=== PATIENT | female | born 1940 | race Caucasian/White ===

== ENCOUNTER → 2020-10-07 13:52 | Outpatient (CLI) | payer OTHER, MEDICARE, SELFPAY ==
--- NOTE | 2020-10-07 | DI.MRI.S_ITS ---
PROCEDURE: MR WRIST LT WO CON INDICATIONS: Localized swelling, mass and lump, left upper limb TECHNIQUE: Noncontrast coronal proton density fast spin echo and T2 fast spin echo with fat saturation; coronal 3-D gradient echo, axial T1 spin echo and T2 fast spin echo with fat saturation, sagittal T1 spin echo through the wrist. COMPARISON: [facility] [place], CR, XR WRIST 3+ VIEWS LEFT, 09/28/2020, 16:33. FINDINGS: Image quality: There is motion artifact and inhomogeneous fat saturation limiting evaluation. Bones and cartilage: The carpal bones are normally aligned. No bone marrow contusions or fractures. There are cystic changes within the volar and dorsal aspects of the lunate as well as the volar proximal aspect of the triquetrum. Findings likely represent intraosseous ganglion cysts versus degenerative subchondral cysts. No evidence of avascular necrosis. There is mild cartilage thinning along the radiocarpal joint. Carpal ligaments: The scapholunate and lunotriquetral ligaments appear intact. In the absence of intra-articular contrast, the extrinsic carpal ligaments are not well identified. On sagittal images, the pisohamate ligament appears intact. Triangular fibrocartilage complex: The triangular fibrocartilage demonstrates degenerative tearing with small perforations adjacent to its radial attachment. There is also degenerative change along its ulnar attachments. Minimal fluid is demonstrated within the distal radioulnar joint. The adjacent meniscal homolog demonstrates degenerative signal. The extensor carpi ulnaris tendon is normal in location and morphology. Tendons and soft tissues: There is an oval circumscribed subcutaneous soft tissue nodule demonstrating T1 and T2 hypointensity within the volar radial aspect of the wrist superficial to the median nerve and flexor carpi radialis tendon. This nodule measures approximately 0.6 x 0.4 by approximately 1.2 cm. There is adjacent subcutaneous edema. The carpal tunnel structures appear normal, including the median nerve. The ulnar nerve appears normal within Guyon's canal. All six extensor tendon compartments demonstrate normal morphology, without pathologic tendon sheath fluid. IMPRESSION: 1. Small subcutaneous solid-appearing soft tissue mass demonstrated within the volar radial aspect of the wrist as described. The findings are nonspecific but suspicious for a small soft tissue neoplasm such as a sarcoma, nerve sheath tumor, or metastasis. The differential also includes infectious or inflammatory processes such as a phlegmon or thrombophlebitis. Further evaluation is recommended with contrast enhanced images if clinically indicated. 2. Degenerative tearing of the triangular fibrocartilage. Dictated by: Finn Chou M.D. on 10/07/2020 at 16:59 Approved by: Finn Chou M.D. on 10/07/2020 at 17:13
== END ==
PROVIDERS: PCP Nurse Practitioner Family; Referring Provider Orthopaedic Surgery Foot and Ankle Surgery; Visit Provider Orthopaedic Surgery Foot and Ankle Surgery
DX: R22.32 Localized swelling, mass and lump, left upper limb (principal); M24.132 Other articular cartilage disorders, left wrist
CPT/HCPCS: 73221

== ENCOUNTER → 2020-10-28 12:43 | Outpatient (CLI) | payer OTHER, SELFPAY ==
--- NOTE | 2020-10-28 | DI.MRI.S_ITS ---
PROCEDURE: MR WRIST LT W CON INDICATIONS: Localized swelling, mass and lump, left upper limb TECHNIQUE: After the administration of 3-4 mL of dilute intra-articular Gadolinium contrast into the radiocarpal compartment, coronal T1 spin echo with fat saturation and T2 fast spin echo with fat saturation, axial T1 spin echo and T2 fast spin echo with fat saturation, sagittal T1 spin echo with and without fat saturation through the wrist. COMPARISON: [facility], , MR WRIST LT WO CON, 10/07/2020, 14:24. FINDINGS: Image quality: Degraded by motion artifact. Subcutaneous mass within the volar/radial aspect of the wrist seen on the prior study from 10/07/20 demonstrates ill-defined enhancement, not well visualized due to small size. This finding is still technically indeterminate. Infectious or inflammatory etiologies are statistically more probable, however cannot exclude small solid neoplasm. No suspicious marrow enhancement. No discrete abscess seen. IMPRESSION: Nonspecific mild heterogeneous enhancement associated with the small mass seen on the prior study as detailed above. Recommend correlation with exam findings and clinical management. Recommend clinical follow-up to document resolution after treatment. Dictated by: Mannie Cannon M.D. on 10/28/2020 at 15:59 Approved by: Mannie Cannon M.D. on 10/28/2020 at 16:04
== END ==
PROVIDERS: PCP Nurse Practitioner Family; Referring Provider Orthopaedic Surgery Foot and Ankle Surgery; Visit Provider Orthopaedic Surgery Foot and Ankle Surgery
DX: R22.32 Localized swelling, mass and lump, left upper limb (principal)
CPT/HCPCS: 73222

== ENCOUNTER → 2021-02-28 12:24 | Outpatient (CLI) | payer OTHER, SELFPAY ==
--- NOTE | 2021-02-28 12:26 | DI.US.S_ITS ---
PROCEDURE: US THYROID INDICATIONS: nontoxic single thyroid nodule TECHNIQUE: Real-time scanning was performed of the thyroid gland, with image documentation. COMPARISON: None. FINDINGS: Right: Thyroid lobe measures 4.8 x 2.8 x 2.6 cm, and is heterogeneous and echotexture. Left: Thyroid lobe measures 5.1 x 2.3 x 3.4 cm, and is heterogeneous in echotexture. Isthmus: 2.2 mm thick. Nodule number: 1 Location: Left inferior Size: 1.9 x 0.9 x 1.8 cm. Composition: Solid Echogenicity: Hypoechoic Shape: wider than tall. Margins: Irregular Echogenic foci: None Total points: 4 ACR TI-RADS category: 4 Nodule number: 2 Location: Right superior Size: 1.9 x 1.1 x 1.6 cm. Composition: Solid Echogenicity: Hypoechoic Shape: wider than tall. Margins: Smooth Echogenic foci: None Total points: 4 ACR TI-RADS category: 4 Nodule number: 3 Location: Right mid inferior Size: 4.1 x 2.3 x 2.2 cm. Composition: Solid Echogenicity: Hypoechoic Shape: wider than tall. Margins: Irregular Echogenic foci: None Total points: 4 ACR TI-RADS category: 4 IMPRESSION: Lesions 1, 2 and 3 are considered category 4. Secondary to size, fine-needle aspiration is recommended as below. ACR TI-RADS definitions and recommendations: TI-RADS 1 (benign): 0 points. FNA not needed. TI-RADS 2 (not suspicious): 2 points. FNA not needed. TI-RADS 3 (mildly suspicious): 3 points. * FNA if 2.5 cm or larger, follow up if 1.5 cm or larger (at 1, 3, and 5 years). TI-RADS 4 (moderately suspicious): 4-6 points. * FNA if 1.5 cm or larger, follow up if 1 cm or larger (at 1, 2, 3, and 5 years). TI-RADS 5 (highly suspicious): 7 points or more. * FNA if 1 cm or larger, follow up if 0.5 cm or larger (every year for 5 years). Dictated by: Idalmis Kennedy M.D. on 02/28/2021 at 16:36 Approved by: Idalmis Kennedy M.D. on 02/28/2021 at 16:39
== END ==
PROVIDERS: PCP Nurse Practitioner Family; Referring Provider Otolaryngology; Visit Provider Otolaryngology
DX: E04.2 Nontoxic multinodular goiter (principal)
CPT/HCPCS: 76536

== ENCOUNTER 2023-11-25 12:38 | Day surgery (SDC) | payer MEDICARE, SELFPAY ==
--- NOTE | 2023-11-25 | PATH_ITS ---
[facility] Accession Number: [id number] No. of containers..04 Tissue . 01 Material submitted: . PART A: colon - TRANSVERSE COLON POLYP PART B: colon - ASCENDING COLON POLYPS PART C: colon - CECAL POLYP PART D: colon - RANDOM COLON BIOPSIES . 01 Diagnosis: A. Colon, transverse, polyp biopsy: Tubular adenoma -- B. Colon, ascending, polyps, biopsies: Fragments of tubular adenomas -- C. Colon, cecum, polyp biopsy: Acellular materials. No colonic mucosa seen despite multiple levels assessment. -- D. Colon, random, biopsies: Benign colonic mucosa, negative for microscopic colitis. Negative for active or chronic inflammation. Negative for dysplasia or malignancy. [facility] 11/27/2023 1556 Local . 01 Electronically signed: . Real Lopez MD, Pathologist NPI- [id number] . 01 Gross description: . Part A: TRANSVERSE COLON POLYP: Received in formalin is 1 fragment(s) of rodriguez, soft tissue measuring 0.5 x 0.4 x 0.4 cm submitted entirely in 1 cassette(s) Part B: ASCENDING COLON POLYPS: Received in formalin are 3 fragment(s) of rodriguez, soft tissue measuring 0.2 x 0.2 x 0.2 cm to 0.3 x 0.3 x 0.2 cm submitted entirely in 1 cassette(s) Part C: CECAL POLYP: Received in formalin is 1 fragment(s) of rodriguez, soft tissue measuring 0.1 x 0.1 x 0.1 cm submitted entirely in 1 cassette(s) Part D: RANDOM COLON BIOPSIES: Received in formalin are 2 fragment(s) of rodriguez, soft tissue measuring 0.2 x 0.2 x 0.2 cm to 0.3 x 0.3 x 0.2 cm submitted entirely in 1 cassette(s) /FOREIGN 11/26/2023 0204 Local . 01 Pathologist provided ICD-10: R19.4, D12.6 . 01 CPT . 822372, 017043, [id number], [id number] Specimen Comment: A courtesy copy of this report has been sent to [phone] Performed at: [address] [place] [address], [id number] MD Finn Triplett MD Phone: [phone]
[2023-11-25] MEDS: LACTATED RINGERS 1,000 ML 42 ML IV (12:59)
[2023-11-25 13:14] VITALS: BP 150/57; PULSE 69; RESP 18; TEMP 36.4; O2SAT 96
--- NOTE | 2023-11-25 13:38 | PM.HP.1 ---
History of Present Illness History of Present Illness Date Patient Seen: 11/25/23 Time Patient Seen: 13:38 Chief complaint: [facility] [place] Narrative: 83-year-old female here for colonoscopy. I reviewed my office note. No significant changes. The patient reports that she sees little seeds in her stool that are translucent. Stools are watery. I do not see a prior set of plain films to exclude fecal loading. I did not see stool studies that reportedly were done in primary care. The patient is off cilostazol 5 days and off apixaban 2 days [facility] Social History Smoking Status: Former smoker Meds Home Medications and Allergies Home Medications Medication Instructions Recorded Confirmed Type amlodipine 5 mg tablet 5 mg PO DAILY 11/25/23 11/25/23 History apixaban 5 mg tablet (Eliquis) 5 mg PO BID 11/25/23 11/25/23 History atorvastatin 40 mg tablet 40 mg PO DAILY 11/25/23 11/25/23 History cilostazol 100 mg tablet 100 mg PO BID 11/25/23 11/25/23 History gabapentin 300 mg capsule 300 mg PO 3XD 11/25/23 11/25/23 History hydrochlorothiazide 12.5 mg tablet 12.5 mg PO DAILY 11/25/23 11/25/23 History lisinopril 40 mg tablet 40 mg PO DAILY 11/25/23 11/25/23 History metoprolol succinate 25 mg 25 mg PO DAILY 11/25/23 11/25/23 History tablet,extended release 24 hr metoprolol tartrate 25 mg tablet 12.5 mg PO PRN PRN Tachycardia 11/25/23 11/25/23 History nitroglycerin 0.4 mg sublingual 0.4 mg sublingual PRN PRN Chest 11/25/23 11/25/23 History tablet Pain Allergies Allergy/AdvReac Type Severity Reaction Status Date / Time meperidine [From Demerol] AdvReac Intermediate Vomiting Verified 11/25/23 13:06 niacin AdvReac Mild Flushing Verified 11/25/23 13:06 Review of Systems Review of Systems ROS: Yes All systems reviewed with the patient and are negative except as otherwise documented Exam Vital Signs (past 8 hours): - 11/25/23 13:14 Temperature 97.5 F L Pulse Rate 69 Respiratory Rate 18 Blood Pressure 150/57 H Pulse Oximetry 96 Oxygen Delivery Method Room Air Oxygen Delivery Method Room Air Const General: cooperative HENMT Head: normal to inspection Eyes General: appearance normal, both eyes and all related structures Neck Neck: normal visual inspection Chest Chest: normal inspection of the chest Resp Effort & Inspection: normal respiratory effort Cardio Rate: regular rate GI Inspection: normal to inspection Skin General: no rashes or lesions noted Neuro General: patient alert and patient awake Extrem General: normal to inspection and no pedal edema Psych Appearance: grossly normal Assessment & Plan Assessment & Plan narrative: 83-year-old female change in bowel. Colonoscopy is pursued today. Time-Based Coding :: [TOTAL MINUTES] spent with patient and on the chart (including review of chart, obtaining history, exam, reviewing outside data, placing orders, documenting exam and treatment plan, and counseling patient) on [DATE].
--- NOTE | 2023-11-25 15:44 | PM.OP.COLON ---
Operative Date/Time/Diagnoses Date of procedure: 11/25/23 Time of procedure: 15:45 Pre-op diagnosis: Change in bowel habits diarrhea Post-op diagnosis: same Procedure & Clinicians Study performed: Colonoscopy with hot snare polypectomy cold snare polypectomy and biopsies Same procedure as scheduled: Yes Indications: Change in bowel habits diarrhea Surgeon: Soham Pedroza Procedure Notes SCOAP/Timeout: Done Procedure in detail: After the risks and benefits were explained, written and verbal informed consent was obtained. The patient was brought into the procedure room and placed into the left lateral decubitus position. Please see anesthesia notes for sedation details. Digital rectal examination was accomplished. The scope was introduced into the patient and advanced under direct visualization to the cecum as identified by the appendiceal orifice and ileocecal valve. The scope was slowly withdrawn to carefully examine the mucosa for any defects or lesions. Comprehensive imaging was accomplished throughout the rectum including the dentate line. The colon was decompressed, the scope was then removed from the patient who tolerated the procedure well. Pediatric colonoscope Bowel prep adequate Procedure time was prolonged. This was almost 60 minutes of actual scope time. Twenty-two modifier is requested. See below. Scope withdrawal time: 26 minutes Sedation minutes: 55 Complications: none Impression: Patient had grade 1-2 internal hemorrhoids. No mass lesions. No procto colitis. There was moderate diverticulosis all throughout the left colon. Patient had a tortuous and redundant colon. Navigation into the cecum was quite challenging. This required patient position changes and application of abdominal pressure. We used the stiffening nathaniel as well. There was polyp in the transverse colon perhaps 6 mm sessile removed with hot snare. In the ascending colon there were 3 polyps ranging in size from 4-6 mm. These were exceedingly difficult to get the scope into position on secondary to looping and patient coughing. All [address] of cold snare. There was a polyp in the cecum. The cecum was exceedingly difficult to initially navigate into and very difficult to get pictures of the appendiceal orifice. On the backside of the valve there was a 6 mm polyp that was partially removed with cold snare (the patient coughed while the snare was closing over the polyp and half of it came by way of cold snare. The 2nd half we removed with cold snare and then with some difficulty applied the tip of the snare to cauterize the area to ensure all of the adenomatous features were ablated. There was a nonbleeding small angiodysplastic focus in the cecum near the appendiceal orifice. The terminal aspect of the terminal ileum appeared visually normal without inflammation. I could not navigate the scope up into the TI proper secondary to looping. In the ascending colon there was a lipomatous fold and for unclear reasons during the procedure it looked like there was a patch of hypoperfused mucosa. Random colon biopsies were taken on the way back for exclusion of microscopic colitis. Endoscopic diagnosis: 1. Difficult navigation 2. Tortuous colon 3. Redundant colon 4. Diverticulosis 5. Grade 2 hemorrhoids 6. 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 Await histology 2. Hold off on restarting cilostazol and Eliquis for another couple of days. 3. Consider early surveillance colonoscopy contingent on histopathology findings. Disposition: PACU
[2023-11-25 15:49] VITALS: BP 137/62; PULSE 72; RESP 13; TEMP 36.5; O2SAT 95
[2023-11-25 15:53] VITALS: BP 116/57; PULSE 71; RESP 15; O2SAT 97
[2023-11-25 16:00] VITALS: BP 133/74; PULSE 79; RESP 22; O2SAT 97
[2023-11-25 16:05] VITALS: BP 158/65; PULSE 81; RESP 12; O2SAT 96
[2023-11-25 16:20] VITALS: BP 159/68; PULSE 76; RESP 12; O2SAT 97
== END 2023-11-25 16:36 | disposition home or self-care (01) ==
PROVIDERS: PCP Nurse Practitioner Family; Referring Provider Internal Medicine Gastroenterology; Visit Provider Internal Medicine Gastroenterology
PROC: 0DJD8ZZ Inspection of Lower Intestinal Tract, Via Natural or Artificial Opening Endoscopic (ICD-10-PCS; CPT 45378; principal; 2023-11-25 14:00)
DX: R19.4 Change in bowel habit (principal); R19.7 Diarrhea, unspecified; K57.30 Diverticulosis of large intestine without perforation or abscess without bleeding; K64.1 Second degree hemorrhoids; D12.3 Benign neoplasm of transverse colon; D12.2 Benign neoplasm of ascending colon
CPT/HCPCS: 45385; 45380; J2704